=== PATIENT | female | born 1980 | race Caucasian/White ===

== ENCOUNTER 2016-06-22 14:35 | Emergency (ER) | payer MEDICAID | END 2016-06-22 16:05 | disposition home or self-care (01) | LOC: ER 14:35 | DX: O26.891 Other specified pregnancy related conditions, first trimester (principal); S39.012A Strain of muscle, fascia and tendon of lower back, initial encounter; Z3A.10 10 weeks gestation of pregnancy | CPT/HCPCS: 81001 ==

== ENCOUNTER 2016-07-07 04:48 | Emergency (ER) | payer MEDICAID ==
[2016-07-07] MEDS ORDERED: DICYCLOMINE 10 MG CAP ONE (05:32)
== END 2016-07-07 06:11 | disposition home or self-care (01) ==
LOC: ER 04:48
DX: K52.9 Noninfective gastroenteritis and colitis, unspecified (principal)
CPT/HCPCS: 36415; 80053; 81003; 83690; 84703; 85025; 87804; 96361; 96374